=== PATIENT | male | born 1995 | race Caucasian/White ===

== ENCOUNTER 2017-01-01 23:31 | Emergency (ER) | payer SELFPAY ==
--- NOTE | 2017-01-02 00:06 | ERNOTE ---
Medical Problem HPI - General Chief Complaint: General Assessment Time Seen by Provider: 01/02/17 00:01 Source: patient Exam Limitations: no limitations - Immun/Allergies/Home Medications Immunizations: IMMUNIZATION HX Immunizations Up to Date No History of Influenza Vaccine No Hx Pneumococcal Vaccination No Allergies/Adverse Reactions: Allergies No Known Allergies Allergy (Verified 01/01/17 23:59) Home Medications: HOME MEDICATIONS NK [No Home Medication] 05/22/16 [Last Taken Unknown] - History of Present History Narrative: pt is here for STD check. He was contacted by his last consort and asked to go get "checked out" for STD's. Pt has absolutely NO symptoms whatsoever Review of Systems - Review of Systems Constitutional: Present: no symptoms reported EYE: Present: no symptoms reported ENT: Present: no symptoms reported Respiratory: Present: no symptoms reported Cardiology: Present: no symptoms reported Gastrointestinal/Abdominal: Present: no symptoms reported Genitourinary: Present: no symptoms reported Musculoskeletal: Present: no symptoms reported Skin: Present: no symptoms reported - Patient's Past Medical History Patient History - Medical: Anxiety, Depression Patient History - Cardiac/Respiratory: No pertinent hx Patient History - Cancer: No Hx of Cancer Patient History - Surgical Procedures: No surgical history Patient History - Other: None - Social History Living Situations: home Abuse History: No History of abuse Psych History: Hx of Anxiety, Hx of Depression Smoking Status: Current every day smoker Alcohol Use: occasionally Drug Use: marijuana - Immunizations Immunizations Up to Date: No Hx Pneumococcal Vaccination: No History of Influenza Vaccine: No Physical Exam - Physical Exam General Appearance: Present: wd/wn, alert, no apparent distress Ears, Nose, Throat: Present: normal ENT inspection, normal pharynx Neck: Present: normal inspection, nontender Respiratory: Present: no respiratory distress, normal breath sounds, no accessory muscle use, chest nontender, lungs clear Cardiovascular/Chest: Present: regular rate, rhythm, no murmur, normal peripheral pulses ED Progress - Vital Signs Patient's Vital Signs:: I have reviewed the patient's vital signs. Vital Signs: Vital Signs 01/01/17 23:54 Temperature 37.2 C Pulse Rate 98 Respiratory 18 Rate Blood Pressure 154/89 O2 Sat by Pulse 100 Oximetry - Progress/Reassessment Chief Complaint: General Assessment Plan - Plan Plan: Will check for STDs and have pt follow up with PCP next week for results as I am being told by staff that results will not be readily available tonight at this facility Departure - Departure Clinical Impression: Sexually transmissible disease Disposition: Home self-care Condition: Good Instructions: Safe Sex Additional Instructions: We will do a battery of STD checks on you, please follow up with your primary doctor next week for results.
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
[2017-01-02 01:31] VITALS: BP 151/96
[2017-01-04 09:32] LABS: Hep B Surface Antigen Confirm DNR
[2017-01-04 12:30] LABS: Hepatitis B Surface Antigen NON-REACTIVE (NON-REACTIVE)
== END 2017-01-02 00:43 | disposition home or self-care (01) ==
LOC: ER 23:31
DX: Z11.3 Encounter for screening for infections with a predominantly sexual mode of transmission (principal); F17.210 Nicotine dependence, cigarettes, uncomplicated